=== PATIENT | female | born 1965 | race African-American/Black ===

== ENCOUNTER 2016-11-03 08:00 | Inpatient (IN) | payer BC, OTHER ==
[2016-12-20 15:56] VITALS: BMI 34.3
[2016-12-29] MEDS ORDERED: ROPIVACAINE HCL 0.5% 30ML VIAL ONE (07:09)
[2016-12-29] MEDS ORDERED: MIDAZOLAM HCL 2 MG/2 ML SINGLE DOSE VIAL ONE ×3 (07:11→07:28)
[2016-12-29] MEDS ORDERED: DEXAMETHASONE SOD PHOSPHATE 4 MG/1 ML VIAL ONE (07:27)
[2016-12-29] MEDS ORDERED: ceFAZolin SODIUM 1 GM VIAL ONE (07:27)
[2016-12-29] MEDS ORDERED: KETOROLAC TROMETHAMINE 30 MG/1 ML VIAL ONE (07:27)
[2016-12-29] MEDS ORDERED: SODIUM CHLORIDE 0.9% P/F 10 ML VIAL IJ ONE (07:27)
[2016-12-29] MEDS ORDERED: PHENYLEPHRINE HCL 10 MG/1 ML SINGLE DOSE VIAL ONE (07:27)
[2016-12-29] MEDS ORDERED: ePHEDrine SULFATE 50 MG/1 ML AMPULE ONE (07:27)
[2016-12-29] MEDS ORDERED: SUCCINYLCHOLINE CHLORIDE 200 MG/10 ML VIAL ONE (07:28)
[2016-12-29] MEDS ORDERED: ROCURONIUM BROMIDE 50 MG/5 ML VIAL ONE (07:28)
[2016-12-29] MEDS ORDERED: PROPOFOL 20 ML ONE ×2 (07:28)
[2016-12-29] MEDS ORDERED: CEFAZOLIN 2 GM/D5W 50 ML IVPB ONE (08:07)
--- NOTE | 2016-12-29 08:07 | HP ---
History & Physical Update - History History: No Change - Physical Physical: No Change - Assessment Assessment: No Change - Plan Plan: No Change (for RUTHY/BSO for pelvic pain and fibroids)
[2016-12-29] MEDS ORDERED: ceFAZolin SODIUM 1 GM VIAL IVPB ONE (08:21)
[2016-12-29] MEDS ORDERED: DEXAMETHASONE SOD PHOSPHATE 4 MG/1 ML VIAL IVPUSH PRN (08:56)
[2016-12-29] MEDS ORDERED: PROMETHAZINE HCL 25 MG/1 ML VIAL IVPB PRN (08:56)
[2016-12-29] MEDS ORDERED: ONDANSETRON 4 MG/2 ML VIAL IVPUSH PRN (08:56)
[2016-12-29] MEDS ORDERED: LACTATED RINGERS SOLUTION 1,000 ML IV SCH (09:00)
[2016-12-29] MEDS ORDERED: GLYCOPYRROLATE 0.2 MG/1 ML VIAL ONE (09:06)
[2016-12-29] MEDS ORDERED: NEOSTIGMINE METHYLSULFATE 0.5 MG/ML - 10 ML MDV ONE (09:06)
[2016-12-29] MEDS ORDERED: IBUPROFEN 800 MG/8 ML IJ IVPB PRN (09:58)
[2016-12-29] MEDS ORDERED: oxyCODONE HCL 5 MG TABLET PO PRN (09:58)
[2016-12-29] MEDS ORDERED: ENOXAPARIN NA (PORCINE) 40 MG/0.4 ML DISP.SYRIN SQ SCH (10:00)
--- NOTE | 2016-12-29 10:05 | OP ---
Operative Note - Note: Operative Date: 12/29/16 Pre-Operative Diagnosis: Pelvic pain, fibroids Operation: Total abdominal hysterectomy, bilateral salpingo-oophorectomy Findings: large fibroid uterus - 14 week size normal b/l fallopian tubes right ovarian cyst Post-Operative Diagnosis: Same as Pre-op Surgeon: Mary Arechiga Supervisor Cigarette Making Department: Lyndsey Sy Anesthesiologist/COMBINE MECHANIC: Fan Painter Jr. Anesthesia: General Specimens Removed: Uterus, cervix, bilateral fallopian tubes Estimated Blood Loss (mls): 200 Operative Report Dictated: Yes
[2016-12-29] MEDS ORDERED: HYDROmorphone *PCA* 10MG/50ML DISP.SYRIN PCA ONE ×2 (10:22→10:45)
[2016-12-29] MEDS: LACTATED RINGERS SOLUTION 1,000 ML IV SCH ×2 (15:28→19:45)
[2016-12-29] MEDS ORDERED: IBUPROFEN 600 MG TABLET (FP) PO PRN (16:00)
[2016-12-29] MEDS ORDERED: INSULIN (NOVOLOG) ASPART 100 UNITS/ML 10ML VIAL ONE (17:13)
[2016-12-29] MEDS: CEFAZOLIN (PRE-DOCKED) 50 ML IVPB SCH (17:18)
[2016-12-29] MEDS: GLIMEPIRIDE 4 MG TABLET (FP) PO SCH (17:18)
[2016-12-29] MEDS: INSULIN SLIDING SCALE (NOVOLOG) 1 VIAL SQ SCH (17:18)
[2016-12-30] MEDS: CEFAZOLIN (PRE-DOCKED) 50 ML IVPB SCH ×2 (01:28→10:24)
[2016-12-30] MEDS ORDERED: PT OWN MED DRAWER 7, Y5N ONE (05:03)
[2016-12-30] MEDS: INSULIN SLIDING SCALE (NOVOLOG) 1 VIAL SQ SCH ×3 (06:21→15:55)
[2016-12-30] MEDS: GLIMEPIRIDE 4 MG TABLET (FP) PO SCH ×2 (06:25→15:55)
[2016-12-30] MEDS: LIRAGLUTIDE 0.6 MG/0.1 ML PEN.INJCTR SQ SCH (06:26)
--- NOTE | 2016-12-30 08:11 | PN ---
Progress Note, Physician Chief Complaint: Pt. ambulating, voiding, pain controlled, but still using TAX AUDITOR. No GA complaints. - Current Medication List Current Medications: Active Medications Dexamethasone Sodium Phosphate (Decadron Injection -) 4 mg IVPUSH ONCE PRN PRN Reason: NAUSEA AND/OR VOMITING Diphenhydramine HCl (Benadryl Injection -) 12.5 mg IVPUSH ONCE PRN PRN Reason: FOR ITCHING Enoxaparin Sodium (Lovenox -) 40 mg SQ DAILY [facility] Fentanyl (Sublimaze Injection -) 50 mcg IVPUSH [id number] PRN PRN Reason: PAIN Stop: 01/01/17 08:57 Glimepiride (Amaryl -) 4 mg PO BIDAC [facility] Last Admin: 12/30/16 06:25 Dose: 4 mg Hydromorphone HCl (Dilaudid Compounding Technician -) 0 mg TAX AUDITOR TAX AUDITOR [facility] PRN Reason: Protocol Stop: 01/05/17 08:57 Lactated Ringer's (Lactated Ringers Solution) 1,000 mls @ 125 mls/hr IV ASDIR [facility] Last Admin: 12/29/16 19:45 Dose: 125 mls/hr Cefazolin Sodium (Ancef 1gm Ivpb (Pre-Docked)) 50 mls @ 100 mls/hr IVPB Q8H-IV [facility] Stop: 12/30/16 17:59 Last Admin: 12/30/16 01:28 Dose: 100 mls/hr Ibuprofen (Motrin -) 600 mg PO QID PRN PRN Reason: PAIN Ibuprofen (Caldolor Injection -) 800 mg IVPB Q6H PRN PRN Reason: FEVER Insulin Aspart (Novolog Vial Sliding Scale -) 1 vial SQ TIDAC [facility] PRN Reason: Protocol Last Admin: 12/30/16 06:21 Dose: Not Given Liraglutide (Victoza -) 1.8 mg SQ DAILY@0700 [facility] Last Admin: 12/30/16 06:26 Dose: Not Given Losartan Potassium (Cozaar -) 100 mg PO DAILY [facility] Oxycodone HCl (Roxicodone -) 5 mg PO Q3H PRN PRN Reason: PAIN LEVEL 1-5 Oxycodone HCl (Roxicodone -) 10 mg PO Q3H PRN PRN Reason: PAIN LEVEL 6-10 Promethazine HCl (Phenergan Injection -) 12.5 mg IVPB Q6H PRN PRN Reason: NAUSEA AND/OR VOMITING - Objective Vital Signs: Vital Signs Temperature 98.1 F 12/30/16 06:00 Pulse Rate 80 12/30/16 06:46 Respiratory Rate 16 12/30/16 06:46 Blood Pressure 111/63 12/30/16 06:46 O2 Sat by Pulse Oximetry (%) 96 12/29/16 21:00 Constitutional: Yes: Well Nourished, No Distress, Calm Musculoskeletal: Yes: WNL Neurological: Yes: WNL, Alert, Oriented ...Motor Strength: WNL Assessment/Plan POD#1 s/p RUTHY with bilateral TAP blocks and Dilaudid TAX AUDITOR. Doing well. Continue TAX AUDITOR.
[2016-12-30 08:31] LABS: MCH 24.6 pg (25.7-33.7); MCHC 31.7 g/dl (32.0-36.0); MEAN CELL VOLUME 77.6 fl (80-96); MEAN PLT VOLUME 10.8 fl (7.5-11.1); PLATELET COUNT 164 K/MM3 (134-434); RDW 15.7 % (11.6-15.6); WHITE BLOOD COUNT 11.3 K/mm3 (4.0-10.0)
[2016-12-30] MEDS ORDERED: HYDROmorphone HCL CARPU-JECT 1 MG/1 ML DISP.SYRIN IM PRN (09:15)
[2016-12-30] MEDS: LACTATED RINGERS SOLUTION 1,000 ML IV SCH (10:16)
[2016-12-30] MEDS: ENOXAPARIN NA (PORCINE) 40 MG/0.4 ML DISP.SYRIN SQ SCH (10:24)
[2016-12-30] MEDS: oxyCODONE HCL 5 MG TABLET PO PRN ×3 (10:24→23:03)
[2016-12-30] MEDS: LOSARTAN POTASSIUM 50 MG TABLET (FP) PO SCH (10:25)
[2016-12-30] MEDS ORDERED: INSULIN (NOVOLOG) ASPART 100 UNITS/ML 10ML VIAL ONE ×3 (10:36→22:54)
--- NOTE | 2016-12-30 10:59 | PN ---
Progress Note, Physician Chief Complaint: Pt with some soreness, otherwise feels well. Pain controlled overall with IMAGING ANALYST overnight. No CP/SOB/F/C/SAM. Denies VB. Pt has been OOB to chair, mild dizziness last night. No n/v. Tolerating clears. Hernandes catheter draining adequate clear yellow urine. No other issues/complaints. - Current Medication List Current Medications: Active Medications Dexamethasone Sodium Phosphate (Decadron Injection -) 4 mg IVPUSH ONCE PRN PRN Reason: NAUSEA AND/OR VOMITING Diphenhydramine HCl (Benadryl Injection -) 12.5 mg IVPUSH ONCE PRN PRN Reason: FOR ITCHING Enoxaparin Sodium (Lovenox -) 40 mg SQ DAILY [facility] Last Admin: 12/30/16 10:24 Dose: 40 mg Fentanyl (Sublimaze Injection -) 50 mcg IVPUSH [id number] PRN PRN Reason: PAIN Stop: 01/01/17 08:57 Glimepiride (Amaryl -) 4 mg PO BIDAC [facility] Last Admin: 12/30/16 06:25 Dose: 4 mg Hydromorphone HCl (Dilaudid Blueprint Machine Operator -) 0 mg IMAGING ANALYST IMAGING ANALYST [facility] PRN Reason: Protocol Stop: 01/05/17 08:57 Hydromorphone HCl (Dilaudid Injection -) 1 mg IM Q6H PRN PRN Reason: PAIN LEVEL 6-10 Lactated Ringer's (Lactated Ringers Solution) 1,000 mls @ 125 mls/hr IV ASDIR [facility] Last Admin: 12/30/16 10:16 Dose: Not Given Cefazolin Sodium (Ancef 1gm Ivpb (Pre-Docked)) 50 mls @ 100 mls/hr IVPB Q8H-IV [facility] Stop: 12/30/16 17:59 Last Admin: 12/30/16 10:24 Dose: 100 mls/hr Ibuprofen (Motrin -) 600 mg PO QID PRN PRN Reason: PAIN Ibuprofen (Caldolor Injection -) 800 mg IVPB Q6H PRN PRN Reason: FEVER Insulin Aspart (Novolog Vial Sliding Scale -) 1 vial SQ TIDAC [facility] PRN Reason: Protocol Last Admin: 12/30/16 10:41 Dose: 4 unit Liraglutide (Victoza -) 1.8 mg SQ DAILY@0700 [facility] Last Admin: 12/30/16 06:26 Dose: Not Given Losartan Potassium (Cozaar -) 100 mg PO DAILY [facility] Last Admin: 12/30/16 10:25 Dose: 100 mg Oxycodone HCl (Roxicodone -) 5 mg PO Q3H PRN PRN Reason: PAIN LEVEL 1-5 Oxycodone HCl (Roxicodone -) 10 mg PO Q3H PRN PRN Reason: PAIN LEVEL 6-10 Last Admin: 12/30/16 10:24 Dose: 10 mg Promethazine HCl (Phenergan Injection -) 12.5 mg IVPB Q6H PRN PRN Reason: NAUSEA AND/OR VOMITING - Objective Vital Signs: Vital Signs Temperature 98.1 F 12/30/16 06:00 Pulse Rate 80 12/30/16 06:46 Respiratory Rate 16 12/30/16 06:46 Blood Pressure 111/63 12/30/16 06:46 O2 Sat by Pulse Oximetry (%) 96 12/29/16 21:00 Constitutional: Yes: Well Nourished, No Distress, Calm Eyes: Yes: Conjunctiva Clear, EOM Intact HENT: Yes: Atraumatic, Normocephalic Neck: Yes: Supple, Trachea Midline Cardiovascular: Yes: Regular Rate and Rhythm Respiratory: Yes: Regular, CTA Bilaterally Gastrointestinal: Yes: Normal Bowel Sounds, Soft Genitourinary: Yes: Hernandes Present Extremities: Yes: WNL Wound/Incision: Yes: Clean/Dry, Well Approximated, Steri Strips Neurological: Yes: Alert, Oriented Psychiatric: Yes: Alert, Oriented Labs: CBC, BMP 12/30/16 07:00 Problem List - Problems (1) History of hysterectomy Code(s): Z90.710 - ACQUIRED ABSENCE OF BOTH CERVIX AND UTERUS Assessment/Plan 51 y/o POD#1 s/p RUTHY/BSO for fibroids and pelvic pain - AFVSS - hgb 10.4 post op - continue with clear diet, advance to diabetic diet as needed - HTN - BPs stable on home meds, continue home meds - DM - BGs elevated overnight, continue BGM TIC AC and sliding scale along with home PO regimen - for diabetic diet - encouarge ambulation, Lovenox for VTE PPX - routine care, plan for discharge home in a.m. if voiding, passing flatus and tolerating diet
--- NOTE | 2016-12-30 11:05 | OP ---
DATE OF OPERATION: 12/29/2016 PREOPERATIVE DIAGNOSIS: Fibroid uterus, pelvic pain. POSTOPERATIVE DIAGNOSIS: Fibroid uterus, pelvic pain. PROCEDURE: Total abdominal hysterectomy, bilateral salpingo-oophorectomy. SURGEON: Mary Arechiga DO MINING DETAIL DRAFTSPERSON: Lyndsey Sy MD FINDINGS: Included enlarged fibroid uterus, normal bilateral fallopian tubes, right ovarian cyst, normal left ovary. COMPLICATIONS: None. ESTIMATED BLOOD LOSS: 200 mL. COUNT: Sponge, needle, and instrument count was correct. ANESTHESIA: General anesthesia administered by Fan Painter. DISPOSITION: Stable to PACU. BRIEF HISTORY: The patient is a 51-year-old female who had been seen in the office with complaints of abnormal bleeding and pelvic pain. The patient underwent a failed HTA endometrial ablation and subsequently continued to have significant pelvic pain with her fibroids. The patient elected to undergo definitive management and wanted to undergo an abdominal hysterectomy. The patient was consented for the procedure in the office and then the patient was admitted to [facility] on December 29, 2016. DESCRIPTION OF PROCEDURE: The patient and the surgeon were mutually identified. The patient was then taken back to the operating room where she was given general anesthesia by Fan Painter with Dr. Newsome supervising. She was then prepped and draped in the usual sterile fashion. A Hernandes catheter was placed under sterile conditions and then a hard time-out was performed. A Pfannenstiel skin incision was created in the skin with a scalpel, and the incision was carried to the underlying layer of rectus fascia with the Bovie. The rectus fascia was incised on either side of the midline. This incision was carried in a superolateral direction with the Bovie. The fascia was tented upward and dissected off the underlying layer of rectus muscle. The rectus muscles were identified, bluntly. The peritoneum was entered bluntly and carefully dissected to allow for adequate room for the surgery. The uterus was then exteriorized from the abdomen, and the abdominal contents including the bowel were packed away with wet lap sponges. Next, on the right side, the infundibulopelvic ligament was located, ligated, and cut. It was difficult to see posterior to the uterus at this time, so attention was then turned to the round ligament, which was clamped and cut with the LigaSure device. Next, the bladder flap was created anteriorly using sharp dissection dissecting the bladder off the anterior portion of the uterus and the cervix. Next, the utero-ovarian ligament was clamped and cut, and the uterine arteries were then skeletonized. Next, the LigaSure device was used to clamp, ligate, and cut the uterine arteries on the right side and several bites down to the level of the uterosacral ligament. Attention was then turned to the left side. The uteroovarian anastomosis was clamped, ligated, and cut with the LigaSure device. The round ligament was clamped and cut with the LigaSure device, and an anterior bladder flap was further developed using sharp technique. Next , the uterine arteries on the left side were skeletonized, ligated, clamped, and cut in several bites down to the level of the uterosacral ligaments all done with the LigaSure device. Next, the vagina was entered sharply with a 15 blade, and Nakul scissors were used in a circumferential fashion to detach the uterus from the top of the vagina. The uterus and cervix were passed off and sent to Pathology for evaluation. The vagina was then reapproximated using Vicryl sutures in a running, locked fashion. After repair of the vagina, 2 further sutures were placed along the midportion of the vaginal cuff to achieve hemostasis. Attention was then turned to the right adnexa where the fallopian tube and ovary were elevated , and the remainder of the infundibulopelvic ligament was ligated and cut with the LigaSure device. The right tube and ovary were sent off to Pathology for permanent evaluation. The same was repeated on the left adnexa. The IP ligament was identified. The tube and ovary were elevated, and the IP ligament was, ligated and cut with the LigaSure device. Bilateral ureters were then elevated transperitoneally. Bilateral ureters were noted to be within normal caliber and peristalsing. The vaginal cuff was then inspected again and noted to be hemostatic. The peritoneum was then reapproximated using Vicryl suture in a running fashion. The musculature was reapproximated using a single interrupted suture. The fascia was reapproximated using 0 Vicryl suture in a running fashion with an extra layer for reinforcement on the left portion of the fascia where the fascia appeared to be thin. The subcutaneous tissue was irrigated and then approximated with Vicryl suture and hemostasis was achieved. The skin was reapproximated using 3-0 Vicryl suture in a running subcuticular fashion. The patient tolerated the procedure well and is recovering in stable condition in the PACU at the time of this dictation. Sponge, needle and instrument count were reported as correct. MARY ARECHIGA DO /[id number] MTDD
[2016-12-30] MEDS ORDERED: HYDROmorphone HCL CARPU-JECT 1 MG/1 ML DISP.SYRIN IVPB PRN (11:32)
--- NOTE | 2016-12-30 12:13 | PATH ---
Surgical Pathology Report Patient Name: JORDAN NORTON [facility]. Rec. #: [id number] /Age/Gender: 1965 (Age: 51) / F Account: [id number] Location: [address] [place] [address] Taken: 12/29/2016 Received: 12/29/2016 Reported: 12/30/2016 Physicians: Lashaun Vargas M.D. Specimen(s) Received A: UTERUS AND CERVIX B: RIGHT FALLOPIAN TUBE & OVARY C: LEFT FALLOPIAN TUBE & OVARY Clinical History Fibroids, pelvic pain Final Diagnosis A. UTERUS AND CERVIX, HYSTERECTOMY: UTERUS AND CERVIX, 560 GRAMS, WITH EXTENSIVE ADENOMYOSIS, BENIGN ENDOMETRIAL POLYPS WITH SECRETORY CHANGE, LEIOMYOMA, ENDOCERVIX WITH CHRONIC INFLAMMATION. B. RIGHT FALLOPIAN TUBE AND OVARY, SALPINGO-OOPHORECTOMY: BENIGN OVARY WITH BENIGN SEROUS CYST, AND BENIGN FALLOPIAN TUBE WITH PARATUBAL CYST. C. LEFT FALLOPIAN TUBE AND OVARY, SALPINGO-OOPHORECTOMY: BENIGN OVARY WITH HEMORRHAGIC CORPUS LUTEUM, AND BENIGN FALLOPIAN TUBE WITH PARATUBAL CYST. Electronically Signed Dagnelo Cherry M.D. Gross Description A. Received in formalin, labeled "uterus and cervix," is a 560 g hysterectomy specimen including a uterus with an attached cervix and no adnexa. The specimen measures 13 cm from superior to inferior, 10.5 cm from left to right and 9.5 cm from anterior to posterior. The serosa is pink-paz and smooth. The attached cervix measures 3 cm in length and averages 2.5 cm in diameter. The ectocervix is paz, smooth and glistening. The endocervix is unremarkable. Endometrial cavity measures 7 cm in length and 3.5 cm from cornu to cornu. The endometrium displays 4 paz-red, polypoid lesions ranging from 1.3 x 0.8 x 0.2 cm to 2.2 x 1.0 x 0.3 cm. The remaining endometrium is paz-red and averages 0.2 cm in thickness. The myometrium displaying is a 3 cm in greatest dimension intramural nodule. The cut surface of the nodule is paz, firm to rubbery displays whirled architecture. No areas of hemorrhage or necrosis are identified. The remaining myometrium is paz, firm, trabeculated and averages 4.5 cm in thickness. Nurse Aide sections are submitted in 12 cassettes as follows: 1-anterior cervix; 2-posterior cervix; 8-7-phiuaipt endometrial polyps; 6-posterior endometrial polyp; 7-additional anterior endomyometrium; 6-5-ciodctiegm posterior endomyometrium; 10-intramural nodule; 77-09-iegzswwyrn freight representative myometrium. B. Received in formalin, labeled "right fallopian tube and ovary," is a 1.7 cm in length fimbriated portion of fallopian tube with an attached ovary. The outer surface of the tube is rob purple with 2 paratubal cysts and fat attached to the fimbria. The paratubal cysts average 0.5 cm in greatest dimension. The specimen displays tubal ovarian adhesions. Sectioning reveals an unremarkable fallopian tube lumen. The attached cystic appearing ovary measures 4.3 x 3.6 x 3.0 cm. The outer surface is paz pink and smooth. Sectioning reveals a cystic lumen containing clear serous fluid. The cyst lining is smooth. No excrescences are identified. There is minimal attached possible remaining ovarian parenchyma on the outer rim. Nurse Aide sections are submitted in 5 cassettes as follows: 1-fimbria with attached paratubal cysts and fat; 2-entirely submitted remainder of fallopian tube; 3-4-cyst wall with possible remaining ovarian parenchyma; 5-additional cyst wall. C. Received in formalin, labeled "left fallopian tube and ovary," is a 3.5 cm in length fimbriated portion of fallopian tube. There is a 0.7 cm in greatest dimension paratubal cyst attached to the fimbria. The outer surface of the fallopian tube is rob purple and smooth. Sectioning reveals an unremarkable lumen. Separately received within the same container is a 3.7 x 2.0 x 1.4 cm ovary. The outer surface of the ovary displays a bulging 1.6 cm in greatest dimension focally disrupted, hemorrhagic corpus luteum. The remaining outer surface of the ovary is paz, convoluted and smooth. Sectioning reveals additional hemorrhagic corpora lutea. The remaining ovarian parenchyma is paz and unremarkable. Nurse Aide sections are submitted in 4 cassettes as follows: 1-fimbria with paratubal cyst; 2-cross sections of fallopian tube; 3-disrupted bulging corpus luteum; 4-freight representative ovary. 12/29/201612/29/2016
[2016-12-30] MEDS ORDERED: DOCUSATE SODIUM 100 MG CAPSULE (FP) PO PRN (15:17)
[2016-12-31] MEDS ORDERED: INSULIN (NOVOLOG) ASPART 100 UNITS/ML 10ML VIAL ONE (06:03)
[2016-12-31] MEDS ORDERED: PT OWN MED DRAWER 7, Y5N ONE (06:05)
[2016-12-31] MEDS: GLIMEPIRIDE 4 MG TABLET (FP) PO SCH (06:42)
[2016-12-31] MEDS: INSULIN SLIDING SCALE (NOVOLOG) 1 VIAL SQ SCH ×2 (06:42→11:08)
[2016-12-31] MEDS: LIRAGLUTIDE 0.6 MG/0.1 ML PEN.INJCTR SQ SCH (06:43)
[2016-12-31] MEDS: HYDROmorphone *PCA* 10MG/50ML DISP.SYRIN PCA SCH ×2 (07:21→07:22)
[2016-12-31] MEDS: ENOXAPARIN NA (PORCINE) 40 MG/0.4 ML DISP.SYRIN SQ SCH (09:03)
[2016-12-31] MEDS: LOSARTAN POTASSIUM 50 MG TABLET (FP) PO SCH (09:03)
--- NOTE | 2016-12-31 09:19 | DS ---
[id number] Rate 20 12/31/16 06:16 Blood Pressure 125/63 12/31/16 06:16 O2 Sat by Pulse Oximetry (%) 96 12/30/16 21:00 Labs: CBC, BMP 12/30/16 07:00 Discharge Summary Reason For Visit: FIBROIDS, PAIN Current Active Problems History of hysterectomy (Acute) Procedures: Principal: Total adominal hysterectomy, bilateral salipngo oophorectomy Hospital Course: Patient was admitted and underwent an uncomplicated Total Abdominal Hysterectomy for fibroids and pelvic pain. The patient recovered well and met all post operative milestones. By post op day 2, the patient was tolerating regular diet, voiding, passing flatus and ambulating. Patient was discharged home in stable condition on post operative day 2. Condition: Good - Instructions Diet, Activity, Other Instructions: Physical activity Resume your normal everyday activity as tolerated no heavy lifting or exercise until seen by your surgeon. You may walk unlimited amounts and climb stairs. You may resume driving the car when you feel safe and comfortable behind the wheel. No sexual activity as instructed by Dr. Arechiga. You may shower the day after surgery. If there are tapes present on the skin, you may shower over them. Do not peel them off. Diet There are no dietary restrictions. Eat healthy, high-fiber foods. Drink 6 to 8 glasses of liquid each day. This will assist in keeping your bowels regular. Pain management You may take Tylenol or acetaminophen or Ibuprofen (for example, Motrin, Advil etc.) from my pain prescription medication is ordered should be taken as prescribed for moderate to severe pain. Call Dr. Arechiga for any of the following: Severe pain not relieved by medication Fever of 101 or higher Excessive bleeding or drainage on dressing Inability to urinate Call the office at [phone] for an appointment in seven days to check your incision. Disposition: HOME - Home Medications Comprehensive Discharge Medication List: Ambulatory Orders Liraglutide [Victoza -] 1.8 mg SQ DAILY@0700 08/16/15 Losartan Potassium 100 mg PO DAILY 08/16/15 Aspirin [Aspirin EC] 81 mg PO DAILY 01/07/16 Ibuprofen [Motrin -] 600 mg PO QID PRN #28 tablet 01/14/16 Glimepiride [Amaryl -] 4 mg PO BID 02/07/17 Erythromycin Base/Ethanol [Erygel 2% Gel] 30 gm TP BID 12/29/16
[2016-12-31] MEDS: oxyCODONE HCL 5 MG TABLET PO PRN (09:51)
[2016-12-31] MEDS ORDERED: ASPIRIN COATED 81 MG TABLET.EC PO SCH (10:00)
[2016-12-31] MEDS ORDERED: [UNRECOGNIZED DRUG - OTHER] TP SCH (10:00)
[2016-12-31] MEDS ORDERED: ERYTHROMYCIN BASE TP SCH (10:00)
[2016-12-31] MEDS ORDERED: ETHANOL TP SCH (10:00)
[2016-12-31] MEDS: LACTATED RINGERS SOLUTION 1,000 ML IV SCH (10:38)
[2016-12-31 10:43] VITALS: BP 135/71; PULSE 98; TEMP 98
[2016-12-31] MEDS ORDERED: INSULIN (NOVOLOG) ASPART 100 UNITS/ML 10ML VIAL SQ ONE (22:40)
[2017-01-01] MEDS ORDERED: ERYTHROMYCIN BASE TP SCH (10:00)
[2017-01-01] MEDS ORDERED: ASPIRIN COATED 81 MG TABLET.EC PO SCH (10:00)
[2017-01-01] MEDS ORDERED: ETHANOL TP SCH (10:00)
[2017-01-01] MEDS ORDERED: [UNRECOGNIZED DRUG - OTHER] TP SCH (10:00)
== END 2016-12-31 11:33 | disposition home or self-care (01) | DRG 743 ==
LOC: JSAMEDAYSX 12-29 05:06 → J6S 12-29 14:34
PROVIDERS: ADMIT Obstetrics & Gynecology; ATTEND Obstetrics & Gynecology
PROC: 0UTC0ZZ Resection of Cervix, Open Approach (ICD-10-PCS; 2016-12-29)
PROC: 0UT70ZZ Resection of Bilateral Fallopian Tubes, Open Approach (ICD-10-PCS; 2016-12-29)
PROC: 0UT20ZZ Resection of Bilateral Ovaries, Open Approach (ICD-10-PCS; 2016-12-29)
PROC: 0UT90ZZ Resection of Uterus, Open Approach (ICD-10-PCS; principal; 2016-12-29 08:00)
DX: D25.9 Leiomyoma of uterus, unspecified (principal); E66.8 Other obesity; Z68.34 Body mass index [BMI] 34.0-34.9, adult; Z71.3 Dietary counseling and surveillance; E11.9 Type 2 diabetes mellitus without complications; I10 Essential (primary) hypertension
CPT/HCPCS: 36415; 84703; 85027; 86850; 86900; 86901; 88305-TC; 88307-TC; 94010; 94760

== ENCOUNTER 2018-08-15 20:13 | Emergency (ER) | payer BC, OTHER ==
[2018-08-15 20:36] VITALS: BP 146/86; PULSE 87; TEMP 98.8; BMI 31.3
--- NOTE | 2018-08-15 20:44 | PDOC ---
History of Present Illness - General History Source: Patient Exam Limitations: No Limitations - History of Present Illness Initial Comments: 08/15/18 20:55 A portion of this note was documented by scribe services under my direction. I have reviewed the details of the note, within reason, and agree with the documentation. The case summary and management plan written by me. Procedure note laceration repair Laceration cleaned with peroxide and closed with Dermabond patient tolerated well. Assessment and plan: This is a 52-year-old female who comes in with a superficial laceration to her left hand third and fourth finger dorsum of the distal phalanx. Patient lacerations were closed with Dermabond and she is discharged home. Because patient is a diabetic I started her on Keflex and she will continue that for 5 days. Patient will follow up with her primary care doctor as needed <Johann Zhang I - Last Filed: 08/15/18 20:55> - History of Present Illness Initial Comments: 08/15/18 21:02 The patient is a 52 year old female, with a significant past medical history of hypertension and diabetes, who presents to the emergency department with, left 3rd and 4th finger laceration. As per patient, she was at work when she was moving a table and lacerated her III and IV left digits. She notes the III digit was initially gushing blood. The patient is on Aspirin. She denies recent fevers, chills, headache or dizziness. She denies recent nausea, vomit, diarrhea or constipation. She denies recent dysuria, frequency, urgency or hematuria. She denies recent chest pain or shortness of breath. PAST MEDICAL HISTORY: hypertension and diabetes PAST SURGICAL HISTORY: hysterectomy. FAMILY HISTORY: no pertinent history SOCIAL HISTORY: Pt lives with family and is employed. MEDICATIONS: reviewed ALLERGIES: As per nursing notes ROS: General: No fevers or chills, no weakness, no weight loss HEENT: No change in vision. No sore throat,. No ear pain CardioVascular: No chest pain or shortness of breath Respiratory:No cough, or wheezing. Gastrointestinal: no nausea, vomiting, diarrhea or constipation, No rectal bleeding Genitourinary: No dysuria, hematuria, or frequency Musculoskeletal: No joint or muscle pain or swelling Neurologic: No headache, vertigo, dizziness or loss of consciousness Psychiatric: nor depression +Skin: Laceration to the left III and IV digits. No rashes or easy bruising Endocrine: no increased thirst or abnormal weight change Allergic: no skin or latex allergy All other systems reviewed and normal Physical Exam: GENERAL: The patient is awake, alert, and fully oriented, in no acute distress. HEAD: Normal with no signs of trauma. EYES: Pupils equal, round and reactive to light, extraocular movements intact, sclera anicteric, conjunctiva clear. +EXTREMITIES: Left Hand: 1 cm laceration to the dorsum of the distal left III phalanx. 0.5 cm laceration to the dorsum of the distal left IV phalanx. Normal range of motion, no edema. NEUROLOGICAL: Normal speech, normal gait. PSYCH: Normal mood, normal affect. SKIN: Warm, Dry, normal turgor, no rashes or lesions noted. <Floyd Ellis - Last Filed: 08/15/18 21:02> - General Chief Complaint: Pain Stated Complaint: L 3RD AND 4TH INJURY Time Seen by Provider: 08/15/18 20:17 Past History - Past Medical History Asthma: No COPD: No Diabetes: Yes GI Disorders: No Disorders: No HTN: Yes Liver Disease: No Thyroid Disease: No - Immunization History Immunization Up to Date: Yes - Suicide/Smoking/Psychosocial Hx Smoking Status: No Smoking History: Never smoked Have you smoked in the past 12 months: No Number of Cigarettes Smoked Daily: 0 Information on smoking cessation initiated: No Hx Alcohol Use: No Drug/Substance Use Hx: No Substance Use Type: None Hx Substance Use Treatment: No <Johann Zhang I - Last Filed: 08/15/18 20:55> <Floyd Ellis - Last Filed: 08/15/18 21:02> - Past Medical History Allergies/Adverse Reactions: Allergies Allergy/AdvReac Type Severity Reaction Status Date / Time caffeine Allergy Severe Verified 12/29/16 07:07 [From Excedrin Migraine] latex Allergy Intermediate Verified 12/29/16 07:07 Home Medications: Ambulatory Orders Liraglutide [Victoza -] 1.8 mg SQ DAILY@0700 08/16/15 Losartan Potassium 100 mg PO DAILY 08/16/15 Aspirin [Aspirin EC] 81 mg PO DAILY 01/07/16 Ibuprofen [Motrin -] 600 mg PO QID PRN #28 tablet 01/14/16 Glimepiride [Amaryl -] 4 mg PO BID 12/20/16 Erythromycin Base/Ethanol [Erygel 2% Gel] 30 gm TP BID 12/29/16 Oxycodone HCl/Acetaminophen [Percocet 5-325 mg Tablet -] 1 tab PO Q4H #30 tablet MDD 6 12/31/16 Cephalexin [Keflex] 500 mg PO QID #20 capsule 08/15/18 *Physical Exam - Vital Signs Last Vital Signs Temp Pulse Resp BP Pulse Ox 98.8 F 87 14 146/86 98 08/15/18 20:19 08/15/18 20:19 08/15/18 20:19 08/15/18 20:19 08/15/18 20:19 <Johann Zhang I - Last Filed: 08/15/18 20:55> - Vital Signs Last Vital Signs Temp Pulse Resp BP Pulse Ox 98.8 F 87 14 146/86 98 08/15/18 20:19 08/15/18 20:19 08/15/18 20:19 08/15/18 20:19 08/15/18 20:19 <Floyd Ellis - Last Filed: 08/15/18 21:02> ED Treatment Course - Medications Given in the ED: ED Medications Discontinued Medications Generic Name Dose Route Start Last Admin Trade Name Freq PRN Reason Stop Dose Admin Cephalexin HCl 500 mg 08/15/18 20:54 08/15/18 21:01 Keflex - PO 08/15/18 20:55 500 mg ONCE ONE Administration <Floyd Ellis - Last Filed: 08/15/18 21:02> *DC/Admit/Observation/Transfer - Discharge Dispostion Decision to Admit order: No <Johann Zhang I - Last Filed: 08/15/18 20:55> - Attestations Scribe Attestion: 08/15/18 21:02 Documentation prepared by Floyd Ellis, acting as medical assistant secretary for Johann Zhang MD. <Floyd Ellis - Last Filed: 08/15/18 21:02> Diagnosis at time of Disposition: Finger laceration - Discharge Dispostion Disposition: HOME Condition at time of disposition: Good - Prescriptions Prescriptions: Cephalexin [Keflex] 500 mg PO QID #20 capsule - Referrals Referrals: Dorothy Campo MD [Primary Care Provider] - - Patient Instructions Printed Discharge Instructions: DI for Laceration Repair With Dermabond Additional Instructions: Tylenol or Motrin as needed for pain. Read over and follow Dermabond instructions keep it dry for 72 hours and do not use any petroleum-based products on it as a possible cause the glue to come off early. Return to the emergency department immediately with ANY new, persistent or worsening symptoms. Continue any medications as previously prescribed by your physician. You should follow up with your primary doctor as soon as possible regarding today's emergency department visit. . Please make sure your doctor reviews the results of your emergency evaluation. Thank you for coming to the Emergency Department today for your care. It was a pleasure to see you today. Please note that your evaluation is INCOMPLETE until you follow-up with your doctor. - Post Discharge Activity
[2018-08-15] MEDS ORDERED: CEPHALEXIN MONOHYDRATE 500 MG CAPSULE (UD) PO ONE (20:54)
[2018-08-15] MEDS ORDERED: CEPHALEXIN MONOHYDRATE 500 MG CAPSULE (UD) ONE (21:02)
== END 2018-08-15 21:12 | disposition home or self-care (01) ==
LOC: FER 20:13
PROC: 0HQGXZZ Repair Left Hand Skin, External Approach (ICD-10-PCS; principal; 2018-08-15)
DX: S61.412A Laceration without foreign body of left hand, initial encounter (principal); W26.1XXA Contact with sword or dagger, initial encounter; Y93.89 Activity, other specified; Y92.89 Other specified places as the place of occurrence of the external cause; E10.9 Type 1 diabetes mellitus without complications; I10 Essential (primary) hypertension
CPT/HCPCS: 99283-25

== ENCOUNTER 2018-08-21 16:39 | Emergency (ER) | payer BC, OTHER ==
[2018-08-21 16:43] VITALS: BMI 31.1
--- NOTE | 2018-08-21 16:45 | PDOC ---
History of Present Illness - General Chief Complaint: Pain, Acute Stated Complaint: LEFT 3RD FINGER PAIN Time Seen by Provider: 08/21/18 16:39 History Source: Patient Exam Limitations: No Limitations - History of Present Illness Initial Comments: 08/21/18 16:39 52 year old female with PMH DM presented to ED for left middle finger swelling and redness. She states she injured her finger last monday, laceration was repaired with dermabond, pt was discharged on Keflex, but since then her finger has become swollen and red. She admits to nausea Monday. She denies current nausea, fever, chills, diarrhea, abdominal pain, lightheadedness, chest pain, shortness of breath. She denies missing any antibiotic doses. Allergies - NKDA Past History - Past Medical History Allergies/Adverse Reactions: Allergies Allergy/AdvReac Type Severity Reaction Status Date / Time caffeine Allergy Severe Verified 08/21/18 17:06 [From Excedrin Migraine] latex Allergy Intermediate Verified 08/21/18 17:06 Home Medications: Ambulatory Orders Liraglutide [Victoza -] 1.8 mg SQ DAILY@0700 08/16/15 Losartan Potassium 100 mg PO DAILY 08/16/15 Aspirin [Aspirin EC] 81 mg PO DAILY 01/07/16 Ibuprofen [Motrin -] 600 mg PO QID PRN #28 tablet 01/14/16 Glimepiride [Amaryl -] 4 mg PO BID 12/20/16 Erythromycin Base/Ethanol [Erygel 2% Gel] 30 gm TP BID 12/29/16 Oxycodone HCl/Acetaminophen [Percocet 5-325 mg Tablet -] 1 tab PO Q4H #30 tablet MDD 6 12/31/16 Cephalexin [Keflex] 500 mg PO QID #20 capsule 08/15/18 Clindamycin [Cleocin -] 450 mg PO Q8H #90 capsule 08/21/18 Fluconazole [Diflucan] 150 mg PO ONCE #1 tablet 08/21/18 Asthma: No COPD: No Diabetes: Yes GI Disorders: No Disorders: No HTN: Yes Liver Disease: No Thyroid Disease: No - Immunization History Immunization Up to Date: Yes - Suicide/Smoking/Psychosocial Hx Smoking Status: No Smoking History: Never smoked Have you smoked in the past 12 months: No Number of Cigarettes Smoked Daily: 0 Hx Alcohol Use: No Drug/Substance Use Hx: No Substance Use Type: None Hx Substance Use Treatment: No Review of Systems - Review of Systems Able to Perform ROS?: Yes Comments:: 08/21/18 16:42 General: denies fever, chills, night sweats, generalized weakness. HEENT: denies sore throat, rhinorrhea, ear pain. Heart: denies chest pain, palpitations, syncope, lower extremity swelling, diaphoresis. Respiratory: denies shortness of breath, cough, sputum production, hemoptysis. Abdomen: admits to past nausea. denies abdominal pain, vomiting, diarrhea, constipation, blood in stool. : denies dysuria, increased urinary frequency, hematuria, urinary incontinence , flank pain. Back: denies back pain. Musculoskeletal: admits to left middle finger swelling and pain. Neurological: denies headache, dizziness, numbness, tingling, weakness. Skin: admits to left middle finger erythema. denies laceration, abrasion. *Physical Exam - Physical Exam Comments: 08/21/18 16:43 Constitutional: Well-nourished, Well-developed, appearing stated age. HEENT: head is normocephalic, atraumatic. EOMI. PERRLA. Neck: supple. Full ROM. Heart: regular rhythm. no murmurs, rubs or gallops. Lungs: clear to auscultation bilaterally. no crackles, rhonchi or wheezing. no stridor. Abdomen: soft, nontender. normal bowel sounds. no rebound, guarding, masses. Extremities: Peripheral pulses intact and equal. No lower extremity edema. no pain upon extension of left middle finger. pain to palpation of ventral aspect of finger at the middle and distal phalanx. no sausage finger. swelling and erythema noted to the dorsal aspect of left middle finger at the distal phalanx. left middle finger is not held in the flexed position. Neurological: CN 2-12 grossly intact. Moves all four extremities. Psych: awake, alert, oriented x3. Follows commands. Answers questions appropriately. Procedures - Incision and Drainage I&D Site: Left: Other (Middle finger, dorsal aspect) Betadine cleansed: Yes Anesthesia: 1% Lidocaine Volume(ml): 4 Plain Packing: No Dressing: Yes Medical Decision Making - Medical Decision Making 08/21/18 16:45 52 year old female with PMH DM presented to ED for left middle finger wound swelling and redness. Pt was seen and evaluated at ED, dermabond was applied to wound, pt was discharged on Keflex. Initial Vital Signs Temp Pulse Resp BP Pulse Ox 98.7 F 89 16 138/90 96 08/21/18 16:39 08/21/18 16:39 08/21/18 16:39 08/21/18 16:39 08/21/18 16:39 Afebrile. No tachycardia. No tachypnea. Mild hypertension. No hypoxia on room air. Concern for failed out-patient antibiotics. Digit block was performed. 2 cc of 1% lidocaine was injected into the medial and lateral aspect of the proximal phalanx. A 27G needle was inserted into the most fluctuant portion of the wound. Blood and serous fluid was expressed. No purulent material was expressed from wound. Bacitracan was applied over the wound and a pressure dressing was applied. Pt expressed that she gets yeast infections with antibiotic use, and requested diflucan. - Diflucan prescription sent to pt's pharmacy - Clindamycin 450 mg TID sent to pt's pharmacy - I spoke with the patient about the importance of taking a pro-biotic and eating yogurt to prevent diarrhea, she stated she understood - I spoke with the patient about the importance of following up with her primary care doctor and Dr. Downing, she stated she understood. - I spoke with the patient about return precautions, including increasing redness of the finger, fever, chills, vomiting, lightheadeness, chest pain, or any other concerning symptoms. She stated she understood. Pt will be discharged. *DC/Admit/Observation/Transfer Diagnosis at time of Disposition: Wound infection - Discharge Dispostion Disposition: HOME Condition at time of disposition: Stable Decision to Admit order: No - Prescriptions Prescriptions: Clindamycin [Cleocin -] 450 mg PO Q8H #90 capsule Fluconazole [Diflucan] 150 mg PO ONCE #1 tablet - Referrals Referrals: Everett Downing MD [Staff Physician] - - Patient Instructions Additional Instructions: You were seen today for wound infection. I have written you a new prescription for a new antibiotic and sent it to your pharmacy. Take the Clindamycin 450 mg three times a day. Take a probiotic over the counter to help prevent antibiotic associated diarrhea and yeast infections. Take the antibiotic on a full stomach. Follow up with a hand specialist, Dr. Downing, within 1-2 days. I have provided you with a referral in the discharge paperwork. Call his office tomorrow and make an appointment for as soon as available. Tell the office you were seen in the Emergency Department. Your care is not complete until you follow up. Follow up with your primary care doctor within 1-2 days. Call their office tomorrow and make an appointment for as soon as available. Tell the office you were seen in the Emergency Department. Your care is not complete until you follow up. Return to the Emergency Department for increasing redness, inability to extend the finger, finger held in the flexed position, increasing pain, fever, chills, nausea, vomiting, lightheadedness, chest pain, shortness of breath, or any other new, worsening or concerning symptoms. - Post Discharge Activity
[2018-08-21 17:02] VITALS: BP 138/90; PULSE 89; TEMP 98.7
[2018-08-21] MEDS ORDERED: LIDOCAINE HCL 1%, 10 MG/ML (50 mL VIAL) SQ ONE (17:58)
[2018-08-21] MEDS ORDERED: LIDOCAINE HCL 1%, 10 MG/ML (20ML VIAL) ONE (17:59)
--- NOTE | 2018-08-21 17:59 | PDOC ---
Attending Attestation - Resident Resident Name: Adela Miguel - ED Attending Attestation I have performed the following: I have examined & evaluated the patient, The case was reviewed & discussed with the resident, I agree w/resident's findings & plan, Exceptions are as noted - HPI HPI: 08/21/18 17:53 52yo F hx HTN, DM presents to the ED with redness over laceration she sustained last week. On 08/15, a table fell onto her dorsal L 3rd digit and she sustained a lac which was dermabonded and tx with keflex. She reports increased redness and swelling over the laceration since then. Denies fevers or chills. Denies other sxs of CP, sob, abd pain, n/v/d, headache, rashes, urinary sxs. - Physicial Exam PE: 08/21/18 18:51 Well appearing, non toxic pt L hand: Dorsal L distal phalynx with 2mm stellate healed wound c/d/i with adjacent fluctuant erythematous fluid collection. No purulent appearance, no streaking. Normal strength and sensation. 2+radial pulse. - Medical Decision Making 08/21/18 18:52 52yo F presents to the ED with fluid collection adjacent to dermabonded lac, consistent with likely hematoma. No streaking, surrounding induration, warmth to suggest purulent drainage. Needle drainage done with return of only blood, no purulent drainage consistent with likely hematoma. Will broaden coverage to clinda from keflex and give hand f/u. Pt also given return precautions should she develop worsening redness, fever, weakness or any new or concerning symptoms. Currently well appearing, non toxic, requests DC home I discussed the physical exam findings, ancillary test results and final diagnoses with the patient. I answered all of the patient's questions. The patient was satisfied with the care received and felt comfortable with the discharge plan and treatment plan. The patient will call their primary care physician within 24 hours to arrange follow-up and will return to the Emergency Department with any new, persistent or worsening symptoms.
== END 2018-08-21 18:52 | disposition home or self-care (01) ==
LOC: FER 16:39
PROC: 0H9GXZZ Drainage of Left Hand Skin, External Approach (ICD-10-PCS; principal; 2018-08-21)
DX: L08.9 Local infection of the skin and subcutaneous tissue, unspecified (principal); I10 Essential (primary) hypertension; E11.9 Type 2 diabetes mellitus without complications
CPT/HCPCS: 99282-25